=== PATIENT | female | born 1960 | race Caucasian/White ===

== ENCOUNTER 2019-01-29 15:04 | Emergency (ER) | payer MEDICARE, OTHER ==
[~2019-01-29] VITALS: Ht 165.1 cm; Wt 125.9 kg
[~2019-01-29 15:04] MED LIST: ALEN70TA13 PO; BENA5TAB6 PO; DALF10TA PO; META800T87 PO; NAPR220C15 PO; NATA300V2 IV; OXYC-658 PO; ROPI0.5T2 PO; TIZA2TAB5 PO; TRAM50TA2 PO; TROS20TA4 PO
[2019-01-29 16:01] VITALS: BP 141/61
== END 2019-01-29 16:28 | disposition left against medical advice (07) ==
LOC: ER 15:05
DX: T67.8XXA Other effects of heat and light, initial encounter (principal); G35 Multiple sclerosis; Z88.2 Allergy status to sulfonamides; Z88.8 Allergy status to other drugs, medicaments and biological substances; Z79.899 Other long term (current) drug therapy; X58.XXXA Exposure to other specified factors, initial encounter; Y93.89 Activity, other specified; Y92.89 Other specified places as the place of occurrence of the external cause; Y99.8 Other external cause status
CPT/HCPCS: 99281